=== PATIENT | male | born 1985 | race Hispanic/Latino ===

== ENCOUNTER 2018-06-29 19:56 | Emergency (ER) | payer OTHER ==
[2018-06-29 20:26] VITALS: BP 144/77; PULSE 49; RESP 16; TEMP 98.5; O2SAT 97
[2018-06-29] MEDS ORDERED: Lidocaine 1% Inj (20ml) IJ ONE (20:35)
[2018-06-29] MEDS ORDERED: Tdap Vaccine 0.5 ml Vial (10-64 yrs) IM ONE ×2 (20:35→22:05)
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
== END 2018-06-29 22:27 | disposition home or self-care (01) ==
LOC: H.ER 19:56
DX: S01.81XA Laceration without foreign body of other part of head, initial encounter (principal); W22.8XXA Striking against or struck by other objects, initial encounter; Y92.89 Other specified places as the place of occurrence of the external cause